=== PATIENT | female | born 1955 | race Caucasian/White ===

== ENCOUNTER 2016-11-09 13:36 | Inpatient (IN) ==
[2016-11-09] MEDS ORDERED: 0.9 % Sodium Chloride 1,000 ML IVC ONE (14:26)
[2016-11-09] MEDS ORDERED: GI Cocktail 40 ML EACH PO ONE (14:26)
--- NOTE | 2016-11-09 14:27 | Emergency Department Note ---
Disposition Clinical Impression: Abdominal pain, Nausea and vomiting, Intrahepatic bile duct dilation Disposition: Admitted As Inpatient Condition: Good Referrals: NO,PCP [Non-Partnered Physician] - Forms: Work/School Release, ED Satisfaction Letter General Adult HPI - General Chief complaint: ED Abdominal Pain Stated complaint: abd pain Time Seen by Provider: 11/09/16 13:48 Source: patient Nursing Notes Reviewed: Yes Vital Signs Reviewed: Yes - History of Present Illness Pain Scale: 10 - Related Data Previous Rx's Medication Instructions Recorded Azithromycin [Zithromax] 250 mg PO DAILY #6 tablet 03/18/15 Loratadine [Claritin] 10 mg PO DAILY #30 tablet 03/18/15 Promethazine [Phenergan] 25 mg PO Q6HR #12 tablet 03/18/15 Sucralfate [Carafate] 1 gm PO QIDAC #56 tablet 10/22/16 Allergies Allergy/AdvReac Type Severity Reaction Status Date / Time Banana AdvReac See Verified 11/09/16 13:43 Comments cefdinir [From Omnicef] AdvReac Rash Verified 11/09/16 13:43 Past Medical History - Past Medical History Medical history: Reports: COPD, fibromyalgia, GERD, hypertension Surgical history: Reports: appendectomy, cholecystectomy, hysterectomy Psychiatric history: Reports: anxiety, depression 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 - Social History Smoking Status: Current every day smoker Smokeless Tobacco Status: No Alcohol use: Reports: none Drug use: Reports: none Physical Exam - General General appearance: alert, in no apparent distress Course Vital Signs Temperature 97.6 F 11/09/16 13:40 Pulse Rate 106 11/09/16 13:40 Respiratory Rate 16 11/09/16 13:40 Blood Pressure 141/90 11/09/16 13:40 O2 Sat by Pulse Oximetry 98 11/09/16 13:40 Temperature 97.6 F 11/09/16 13:40 Pulse Rate 68 11/09/16 15:18 Respiratory Rate 20 11/09/16 15:18 Blood Pressure 124/79 11/09/16 15:18 O2 Sat by Pulse Oximetry 97 11/09/16 15:18 Oxygen Delivery Oxygen Delivery Room Air Medical Decision Making - MDM Narrative Medical decision making narrative: I examined this patient and my medical decision-making was reviewed with the ICD 9 CODER/PA/Advanced Practice Nurse/Resident Physician. I agree with the documented findings, disposition and treatment plan as described except to the extent set forth below. Patient seen and evaluated on arrival by myself and Dr. Ballesteros, I agree with his evaluation and management plan, supervise care the patient notes today. Patient had an EKG endoscopy done by Dr. LICEA. They thought she had Bocanegra's and pathology looks like there are some hyperplasia and inflammation. She still has abdominal pain despite having her medications. Return check some labs make sure showing a pancreatitis and reassess. We will speak with GI. 1400 hrs. patient in EKG performed shows a sinus rhythm ventricular rate of 84 QRS is 83 mL 400 no signs of ischemia compared this with an EKG that was done and October shows no changes except for rate. 1510 hrs.: Reviewed labs. Spoke with her GI physician yesterday go and bring her into the hospital. Speak with hospitalist now. Patient's in agreement with plan. Chronic abdominal pain uncertain etiology she will be getting MRCP in the hospital. Per GI. - Lab Data Result diagrams: 11/09/16 14:45 11/09/16 14:45 Lab Results 11/09/16 11/09/16 11/09/16 Range/Units 14:10 14:45 14:45 WBC 5.8 (4.3-11.1) K/mcL RBC 4.35 (3.82-4.97) M/mcL Hgb 13.2 (11.5-15.4) g/dL Hct 38.3 (35.3-44.9) % MCV 88.0 (83.0-100.0) fL MCH 30.3 (28.0-33.3) pg MCHC 34.5 (31.6-35.5) g/dL RDW 12.6 (11.5-14.5) % Plt Count 275 (140-400) K/mcL MPV 9.2 L (9.4-12.4) fL Immature Gran % 0.3 (0-4) % Seg Neutrophils % 60.0 % Lymphocytes % 29.3 % Monocytes % 6.8 % Eosinophils % 2.9 % Basophils % 0.7 % Neutrophils # 3.5 (1.6-8.9) K/mcL Lymphocytes # 1.7 (0.6-4.6) K/mcL Monocytes # 0.4 (0.0-1.3) K/mcL Eosinophils # 0.2 (0.0-0.6) K/mcL Basophils # 0.0 (0.0-0.2) K/mcL Sodium 140 (136-145) mEq/L Potassium 3.5 (3.5-4.5) mEq/L Chloride 107 (98-109) mEq/L Carbon Dioxide 27 (19-29) mEq/L BUN 9 (7-20) mg/dL Creatinine 0.69 (0.57-1.11) mg/dL Est GFR ( Amer) > 60 (> 60) Est GFR (Non-Af Amer) > 60 (> 60) BUN/Creatinine Ratio 13 (6-26) Glucose 87 (70-99) mg/dL Calculated Osmolality 288 (280-300) Calcium 8.8 (8.6-10.8) mg/dL Total Bilirubin 0.3 (0.2-1.2) mg/dL Direct Bilirubin 0.1 (0.0-0.5) mg/dL Indirect Bilirubin 0.2 (0.0-1.2) mg/dL AST 18 (5-34) Units/L ALT 21 (0-55) Units/L Alkaline Phosphatase 93 (38-126) Units/L Serum Total Protein 6.4 (6.0-8.3) g/dL Albumin 3.3 L (3.5-5.0) g/dL Globulin 3.1 (2.4-3.5) g/dL Albumin/Globulin Ratio 1.1 (1.1-2.2) Lipase 21 (8-78) Units/L Urine Color Yellow (Yellow) Urine Clarity Clear (Clear) Urine pH 6.5 (5.0-8.0) pH Units Ur Specific [place] 1.014 (1.010-1.025) Urine Protein Negative (Neg-Trace) mg/dL Urine Glucose (UA) Normal (Normal) mg/dL Urine Ketones Negative (Negative) mg/dL Urine Blood Negative (Negative) Urine Nitrite Negative (Negative) Urine Bilirubin Negative (Negative) Urine Urobilinogen Normal (Normal) mg/dL Ur Leukocyte Esterase Negative (Negative) Ur Culture Indicated? NO (NO)
[2016-11-09 14:29] LABS: Bilirubin,Urine Negative (Negative); Blood,Urine Negative (Negative); Clarity,Urine Clear (Clear); Color,Urine Yellow (Yellow); Glucose,Urine (UA) Normal (Normal); Ketones,Urine Negative (Negative); Leukocyte Esterase,Urine Negative (Negative); Nitrite,Urine Negative (Negative); PH,Urine 6.5 pH Units (5.0-8.0); Protein,Urine Negative (Neg-Trace); Specific Gravity,Urine 1.014 (1.010-1.025); Urobilinogen,Urine Normal (Normal)
--- NOTE | 2016-11-09 14:29 | Emergency Department Note ---
Disposition Clinical Impression: Abdominal pain, Nausea and vomiting, Intrahepatic bile duct dilation Disposition: Admitted As Inpatient Condition: Good Referrals: NO,PCP [Non-Partnered Physician] - Forms: ED Satisfaction Letter, Work/School Release Time of Disposition: 15:33 Abdominal Pain HPI - General Chief Complaint: ED Abdominal Pain Stated Complaint: abd pain Time Seen by Provider: 11/09/16 13:48 Source: patient Mode of arrival: ambulatory Limitations: no limitations Nursing Notes Reviewed: Yes Vital Signs Reviewed: Yes - History of Present Illness HPI Narrative: Patient presents to the ED with the chief complaint of abdominal pain. Patient states this. This is the exact same pain that she has been having for the last several weeks. She recently underwent endoscopy which showed some concern over Bocanegra's esophagus. However, the pathology specimen, came back and was normal. Patient thought that she may have had some infection in her stomach. However, I can find no documentation of H. pylori in her previous documentation. She sees Dr. Ro. States that she has continued to have abdominal pain despite being put on Protonix, sucralfate and Phenergan. She remains nauseated and intermittently vomits. Nausea and vomiting. His continued hand may be slightly gotten worse. States that she feels dehydrated. Reports a constant gnawing pain in her epigastrium. Otherwise there is no fever or chills. No chest pain or difficulty breathing. No diarrhea. Pain Scale: 10 - Related Data Previous Rx's Medication Instructions Recorded Azithromycin [Zithromax] 250 mg PO DAILY #6 tablet 03/18/15 Loratadine [Claritin] 10 mg PO DAILY #30 tablet 03/18/15 Promethazine [Phenergan] 25 mg PO Q6HR #12 tablet 03/18/15 Sucralfate [Carafate] 1 gm PO QIDAC #56 tablet 10/22/16 Allergies Allergy/AdvReac Type Severity Reaction Status Date / Time Banana AdvReac See Verified 11/09/16 13:43 Comments cefdinir [From Omnicef] AdvReac Rash Verified 11/09/16 13:43 All systems ED: reviewed and negative except as stated. Cardiovascular: Denies: chest pain Gastrointestinal: Reports: abdominal pain, nausea, vomiting. 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 Psychiatric history: Reports: anxiety, depression - Social History Smoking status: Current every day smoker Alcohol use: Reports: none Drug use: Reports: none Physical Exam - General Limitations: no limitations General appearance: alert, in no apparent distress - Head Head exam: atraumatic, normocephalic, normal inspection - Eye Eye exam: Present: normal appearance, PERRL, EOMI - ENT ENT exam: mucous membranes dry - Neck Neck exam: Present: normal inspection, full ROM, trachea midline - Chest Chest inspection: Present: normal inspection, symmetric chest wall rise - Respiratory Respiratory exam: Present: normal lung sounds bilaterally - Cardiovascular Cardiovascular exam: Present: regular rate, normal rhythm, normal heart sounds - Abdominal Exam Abdominal exam: Present: other (Histrionic abdominal exam. The patient has her arms crossed over her stomach and would not allow examination.) - Extremities Exam Extremities exam: Present: normal inspection, full ROM. Absent: tenderness, pedal edema - Neurological Exam Neurological exam: Present: alert, oriented X3 - Psychiatric Psychiatric exam: Present: anxious - Skin Skin exam: Present: warm, dry, intact, normal color Course Course Narrative: 61 -year-old female presenting with a 3 week history of nausea, vomiting, abdominal pain in her epigastrium. Initially suspected be an ulcer, but has not responded to traditional treatment. Gastroenterology did an EGD about 3 days ago with some initial concern over Bocanegra's esophagus but pathology returned normal. Patient still having the same symptoms with maybe a slight increase. Vision is very histrionic and is not easily cooperating with a full history or physical exam. We will check labs and rehydrate her as she is slightly tachycardic. - Consultations Consultation #1: Spoke with Dr. Ro. We reviewed the patient's pathology report labs and imaging. Her last CT scan was on October 22 and showed some intrahepatic biliary duct dilation. Status post cholecystectomy. He felt that due to the recurrent pain, nausea and treatments that she is states she has been compliant with are not helping that we should admit her to the hospitalist service for antinausea control and obtain an MRCP today or in the morning and he will evaluate her. Patient agreeable with plan. Time: 15:32 Vital Signs Temperature 97.6 F 11/09/16 13:40 Pulse Rate 106 11/09/16 13:40 Respiratory Rate 16 11/09/16 13:40 Blood Pressure 141/90 11/09/16 13:40 O2 Sat by Pulse Oximetry 98 11/09/16 13:40 Temperature 97.6 F 11/09/16 13:40 Pulse Rate 68 11/09/16 15:18 Respiratory Rate 20 11/09/16 15:18 Blood Pressure 124/79 11/09/16 15:18 O2 Sat by Pulse Oximetry 97 11/09/16 15:18 Oxygen Delivery Oxygen Delivery Room Air Abdominal Pain - Lab Data Result diagrams: 11/09/16 14:45 11/09/16 14:45 Lab Results 11/09/16 11/09/16 11/09/16 Range/Units 14:10 14:45 14:45 WBC 5.8 (4.3-11.1) K/mcL RBC 4.35 (3.82-4.97) M/mcL Hgb 13.2 (11.5-15.4) g/dL Hct 38.3 (35.3-44.9) % MCV 88.0 (83.0-100.0) fL MCH 30.3 (28.0-33.3) pg MCHC 34.5 (31.6-35.5) g/dL RDW 12.6 (11.5-14.5) % Plt Count 275 (140-400) K/mcL MPV 9.2 L (9.4-12.4) fL Immature Gran % 0.3 (0-4) % Seg Neutrophils % 60.0 % Lymphocytes % 29.3 % Monocytes % 6.8 % Eosinophils % 2.9 % Basophils % 0.7 % Neutrophils # 3.5 (1.6-8.9) K/mcL Lymphocytes # 1.7 (0.6-4.6) K/mcL Monocytes # 0.4 (0.0-1.3) K/mcL Eosinophils # 0.2 (0.0-0.6) K/mcL Basophils # 0.0 (0.0-0.2) K/mcL Sodium 140 (136-145) mEq/L Potassium 3.5 (3.5-4.5) mEq/L Chloride 107 (98-109) mEq/L Carbon Dioxide 27 (19-29) mEq/L BUN 9 (7-20) mg/dL Creatinine 0.69 (0.57-1.11) mg/dL Est GFR ( Amer) > 60 (> 60) Est GFR (Non-Af Amer) > 60 (> 60) BUN/Creatinine Ratio 13 (6-26) Glucose 87 (70-99) mg/dL Calculated Osmolality 288 (280-300) Calcium 8.8 (8.6-10.8) mg/dL Total Bilirubin 0.3 (0.2-1.2) mg/dL Direct Bilirubin 0.1 (0.0-0.5) mg/dL Indirect Bilirubin 0.2 (0.0-1.2) mg/dL AST 18 (5-34) Units/L ALT 21 (0-55) Units/L Alkaline Phosphatase 93 (38-126) Units/L Serum Total Protein 6.4 (6.0-8.3) g/dL Albumin 3.3 L (3.5-5.0) g/dL Globulin 3.1 (2.4-3.5) g/dL Albumin/Globulin Ratio 1.1 (1.1-2.2) Lipase 21 (8-78) Units/L Urine Color Yellow (Yellow) Urine Clarity Clear (Clear) Urine pH 6.5 (5.0-8.0) pH Units Ur Specific [place] 1.014 (1.010-1.025) Urine Protein Negative (Neg-Trace) mg/dL Urine Glucose (UA) Normal (Normal) mg/dL Urine Ketones Negative (Negative) mg/dL Urine Blood Negative (Negative) Urine Nitrite Negative (Negative) Urine Bilirubin Negative (Negative) Urine Urobilinogen Normal (Normal) mg/dL Ur Leukocyte Esterase Negative (Negative) Ur Culture Indicated? NO (NO) S.B.AShannan - S.Nancy.AShannan Situation: Demographics, MOA Background: Presenting Complaint, Relevant PMH, Meds, & Allergies Assessment: Vital Signs, Course and respsone to treatment, Exam Concerns, Patient/Family Expectation, Pertinant Lab Results, Outstanding Labs Recommendation: Recommendation based on pending studies, treatments, or consults S.[email or web address].RBeny Report Given to: Dr. Puentes admission Demond Repor Time: 15:39
[2016-11-09 15:08] LABS: Basophils % 0.7 %; Eosinophils # 0.2 K/mcL (0.0-0.6); Eosinophils % 2.9 %; Hematocrit 38.3 % (35.3-44.9); Hemoglobin 13.2 g/dL (11.5-15.4); Immature Granulocytes % 0.3 % (0-4); Lymphocytes # 1.7 K/mcL (0.6-4.6); Lymphocytes % 29.3 %; Mean Corpuscular HGB Conc 34.5 g/dL (31.6-35.5); Mean Corpuscular Hemoglobin 30.3 pg (28.0-33.3); Mean Platelet Volume 9.2 fL (9.4-12.4); Monocytes # 0.4 K/mcL (0.0-1.3); Monocytes % 6.8 %; Neutrophils # 3.5 K/mcL (1.6-8.9); Platelet Count 275 K/mcL (140-400); Red Blood Count 4.35 M/mcL (3.82-4.97); Red Cell Distribution Width 12.6 % (11.5-14.5)
[2016-11-09 15:21] LABS: Alanine Aminotransferase 21 Units/L (0-55); Albumin 3.3 g/dL (3.5-5.0); Albumin/Globulin Ratio 1.1 (1.1-2.2); Alkaline Phosphatase 93 Units/L (38-126); Aspartate Amino Transferase 18 Units/L (5-34); BUN/Creatinine Ratio 13 (6-26); Bilirubin,Direct 0.1 mg/dL (0.0-0.5); Bilirubin,Indirect 0.2 mg/dL (0.0-1.2); Bilirubin,Total 0.3 mg/dL (0.2-1.2); Blood Urea Nitrogen 9 mg/dL (7-20); Calcium 8.8 mg/dL (8.6-10.8); Carbon Dioxide 27 mEq/L (19-29); Chloride 107 mEq/L (98-109); Globulin 3.1 g/dL (2.4-3.5); Glucose 87 mg/dL (70-99); Lipase 21 Units/L (8-78); Osmolality,Calculated 288 (280-300); Potassium 3.5 mEq/L (3.5-4.5); Sodium 140 mEq/L (136-145); Total Protein 6.4 g/dL (6.0-8.3); eGFR For African Americans > 60 (> 60); eGFR For Non-African Americans > 60 (> 60)
--- NOTE | 2016-11-09 16:17 | Event Note ---
Date of Encounter: 11/09/16 Time of Encounter: 16:15 Patient seen and examined with nurse practitioner. 61-year-old female who has been complaining of 3 weeks of upper abdominal pain associated with nausea and none bloody nonbilious vomiting. Findings on workup were nonsignificant. Workup including a CT scan which showed mild dilation of the bile duct related likely to her prior cholecystectomy. She also had an EGD which showed normal stomach and duodenum. She still complaining of pain and vomiting. Possibilities include irritable bowel syndrome versus gastritis/ulcer disease. Her EKG is normal. Dr. Morgan wanted to admit the patient to get MRCP tomorrow given dilation of bile duct on CD and persistent pain. Patient liver functions unlike these are normal. Will give IV PPI. Continue pain medications which she takes for her back. She is full code.
[2016-11-09] MEDS ORDERED: Naloxone 0.4 MG/ML INJ IVP PRN (17:04)
[2016-11-09] MEDS ORDERED: Fluticasone Propionate Nasal 50 MCG/SPRAY BOTTLE NS PRN (17:09)
[2016-11-09] MEDS ORDERED: Pantoprazole 40 MG VIAL IVP SCH (17:15)
[2016-11-09] MEDS: OXYCODONE HCL 15 MG PO SCH (18:09)
[2016-11-09] MEDS: *HR* OxyCODONE/APAP 10/325 TABLET PO PRN (18:15)
[2016-11-09] MEDS: GI Cocktail 40 ML EACH PO SCH (20:27)
[2016-11-09] MEDS: Famotidine 20 MG TABLET PO SCH (20:28)
[2016-11-09] MEDS: Sucralfate 1 GM TABLET PO SCH (20:28)
[2016-11-09] MEDS: Gabapentin 400 MG CAPSULE PO SCH (20:28)
[2016-11-09] MEDS: rOPINIRole 1 MG TABLET PO SCH (20:28)
[2016-11-09] MEDS: Ondansetron 4 MG/2 ML VIAL IVP PRN (20:30)
--- NOTE | 2016-11-09 21:03 | Internal Med History&Physical ---
Date of Encounter: 11/10/16 Time of Encounter: 16:00 Assessment and Plan (1) Abdominal pain Current visit: Yes Status: Acute Assess: Ms. Portillo is a 61 year old female who presents from the ED with chief complaint of abdominal pain with nausea and vomiting. Patient states that she has had this pain for the past three weeks without resolve. Patient reports pain is in the epigastric area and extends from side to side. Patient states that she has not eaten well in the past three weeks and has lost 5 pounds during this time due to anorexia. An EGD test performed two days ago showed inflammation of the stomach lining/gastritis. Patient's PCP suspects an ulcer and placed patient on Protonix and Sucralfate. Plan: GI consult ordered Continue GI cocktail 10 ml PO BID Continue Mag Hydrox/Al Hydrox 15 ml PO Q6HR Continue Omeprazole Continue Bentyl 20 mg PO BID Zofran ordered PRN Clear liquid diet ordered - to be advanced as tolerated Oxycodone ordered for moderate pain (4-6) PO Q6HR PRN Morphine ordered for severe pain (7-10) 2 mg IVP once Monitor patient for pain/vital signs Qualifiers: Abdominal location: epigastric Qualified Code(s): R10.13 - Epigastric pain (2) Nausea and vomiting Current visit: Yes Status: Acute Assess: Ms. Portillo is a 61 year old female who presents from the ED with chief complaint of abdominal pain with nausea and vomiting. Patient states that she has had this pain for the past three weeks without resolve. Patient reports pain is in the epigastric area and extends from side to side. Patient states that she has not eaten well in the past three weeks and has lost 5 pounds during this time due to anorexia. An EGD test performed two days ago showed inflammation of the stomach lining/gastritis. Patient's PCP suspects an ulcer and placed patient on Protonix and Sucralfate. Plan: GI consult ordered Continue GI cocktail 10 ml PO BID Continue Mag Hydrox/Al Hydrox 15 ml PO Q6HR Continue Omeprazole Continue Bentyl 20 mg PO BID Zofran ordered PRN Clear liquid diet ordered - to be advanced as tolerated Oxycodone ordered for moderate pain (4-6) PO Q6HR PRN Morphine ordered for severe pain (7-10) 2 mg IVP once Monitor patient for pain/vital signs Qualifiers: Vomiting type: unspecified Vomiting Intractability: non-intractable Qualified Code(s): R11.2 - Nausea with vomiting, unspecified (3) GERD (gastroesophageal reflux disease) Current visit: Yes Status: Chronic Assess: Ms. Portillo is a 61 year old female who presents from the ED with chief complaint of abdominal pain with nausea and vomiting. Patient states that she has had this pain for the past three weeks without resolve. Patient reports pain is in the epigastric area and extends from side to side. Patient states that she has not eaten well in the past three weeks and has lost 5 pounds during this time due to anorexia. An EGD test performed two days ago showed inflammation of the stomach lining/gastritis. Patient's PCP suspects an ulcer and placed patient on Protonix and Sucralfate. Plan: GI consult ordered Continue GI cocktail 10 ml PO BID Continue Mag Hydrox/Al Hydrox 15 ml PO Q6HR Continue Omeprazole Continue Bentyl 20 mg PO BID Zofran ordered PRN Clear liquid diet ordered - to be advanced as tolerated Oxycodone ordered for moderate pain (4-6) PO Q6HR PRN Morphine ordered for severe pain (7-10) 2 mg IVP once Monitor patient for pain/vital signs Qualifiers: Esophagitis presence: esophagitis presence not specified Qualified Code(s) : K21.9 - Gastro-esophageal reflux disease without esophagitis (4) COPD (chronic obstructive pulmonary disease) Current visit: Yes Status: Chronic Assess: Patient presents with chronic history of COPD. Patient reports she smoked 1 PPD and quit one month ago, but she is now smoking 10 cigarettes per day. Plan: Continue Albuterol 2 puff IH Q4HR PRN Continue Symbicort 2 puff IH BIDR Continue Fluticasone 50 mcg NS BID PRN Continue Ipratropium/Albuterol 3 ml IH TIDR Continue Spiriva 18 mcg 0700 Continuous pulse oximetry monitoring RT consult Monitor patient's vital signs Qualifiers: COPD type: unspecified COPD Qualified Code(s): J44.9 - Chronic obstructive pulmonary disease, unspecified (5) Hypertension Current visit: Yes Status: Chronic Assess: Patient presents with history of chronic hypertension. Plan: Hold Lisinopril Continue Lisinopril if BP becomes elevated Continue Tricor Follow-up labs ordered Monitor patient's vital signs Qualifiers: Hypertension type: essential hypertension Qualified Code(s): I10 - Essential (primary) hypertension (6) DVT prophylaxis Current visit: Yes Status: Acute Assess: Patient to be placed on DVT prophylaxis due to bed rest and inpatient status. Plan: Bileteral SCDs for calves ordered Monitor patient and vital signs Internal Medicine - H&P: HPI Chief complaint: Abdominal pain Admitted From: Emergency Dept Plans for Post Hospital Care: Home History of present illness: Ms. Portillo is a 61 year old female who presents from the ED with chief complaint of abdominal pain with nausea and vomiting. Patient states that she has had this pain for the past three weeks without resolve. Patient reports pain is in the epigastric area and extends from side to side. Patient states that she has not eaten well in the past three weeks and has lost 5 pounds during this time due to anorexia. An EGD test performed two days ago showed inflammation of the stomach lining/gastritis. Patient's PCP suspects an ulcer and placed patient on Protonix and Sucralfate. Mrs. Portillo also reports chronic constipation related to opioids. She states that she has had two colonoscopies performed in the past and both times revealed polyps which were removed and biopsied. During the colonoscopies, it was revealed that she has diverticulosis. Patient also has a history of back pain related to a broken back several years ago, sciatica, and three herniated discs in the neck and three herniated discs in her lower back. Patient to be placed as inpatient status with GI consult ordered. Patient placed on clear liquid diet with advancement as tolerated. Patient to be monitored closely. Past Med Surg Social Fam HX - Past Medical History Source: patient Medical history: COPD, fibromyalgia, GERD, hypertension Psychiatric history: anxiety, depression - Past Surgical History Surgical History: appendectomy, cholecystectomy, hysterectomy - Social History Smoking Status: Current every day smoker Smokeless Tobacco Status: No Alcohol use: none Drug use: none Occupational status: unemployed Current living situation: Home, With Family Activity Level: Independent ambulation Recent Out of Country Travel Within the Last 8 Weeks: No Exposure or Possible Exposure to Illness During Travel: No - Family History Mother Living Status: Age at : 68 Cause of : Renal Failure Hx Family Cardiac Disorders: Yes (CT, HTN) Hx Family GI Disorders: Yes (CKD) Internal Medicine - H&P: Meds Sucralfate [Carafate] 1 gm PO QIDAC #56 tablet 10/22/16 [Rx] Albuterol Sulfate [Proair Hfa] 2 puff IH Q4H PRN 11/09/16 [History] Amitriptyline [Elavil] 25 mg PO HS 11/09/16 [History] Black Cohosh 540 mg PO HS 11/09/16 [History] BuPROPion XL (24 HR) [Wellbutrin XL] 150 mg PO DAILY 11/09/16 [History] Budesonide/Formoterol 160/4.5 [Symbicort 160/4.5] 2 puff IH BIDR 11/09/16 [ History] Cetirizine HCl [Zyrtec] 10 mg PO DAILY 11/09/16 [History] Dicyclomine [Bentyl] 20 mg PO QID 11/09/16 [History] FLUoxetine HCl [Prozac] 40 mg PO DAILY 11/09/16 [History] Fenofibrate Nanocrystallized [Tricor] 145 mg PO DAILY 11/09/16 [History] Fluticasone Propionate Nasal [Flonase] 1 spray NS BID PRN 11/09/16 [History] Furosemide [Lasix] 20 mg PO DAILY 11/09/16 [History] GI Cocktail [Gi Cocktail] 10 ml PO BID 11/09/16 [History] Gabapentin [Neurontin] 800 mg PO QID 11/09/16 [History] Ipratropium/Albuterol Neb [Duoneb] 3 ml IH TID 11/09/16 [History] Lactulose 15 ml PO DAILY PRN 11/09/16 [History] Lisinopril [Zestril] 20 mg PO DAILY 11/09/16 [History] Meclizine HCl [Verticalm] 25 mg PO Q4-6H PRN 11/09/16 [History] [place]-3/Dha/Epa/Fish Oil [Fish Oil 500 mg Softgel] 500 mg PO BID 11/09/16 [ History] Ondansetron HCl [Zofran] 4 mg PO TID PRN 11/09/16 [History] Oxycodone HCl [Oxycodone HCl ER] 15 mg PO Q12H 11/09/16 [History] Oxycodone HCl/Acetaminophen [Percocet 10-325 mg Tablet] 1 each PO Q6H PRN [History] Pantoprazole Sodium [Pantoprazole Sodium] 40 mg PO BID 11/09/16 [History] Promethazine [Phenergan] 25 mg PO TID PRN 11/09/16 [History] Ranitidine HCl [Zantac] 150 mg PO BID 11/09/16 [History] Ropinirole [Requip] 1 mg PO HS 11/09/16 [History] Tiotropium [Spiriva] 18 mcg IH 0700 11/09/16 [History] Allergies Banana Adverse Reaction (Mild, Verified 11/09/16 18:06) See Comments Patient states she had allergy testing done and was allergic. cefdinir [From Omnicef] Adverse Reaction (Mild, Verified 11/09/16 18:06) Rash egg Adverse Reaction (Mild, Verified 11/09/16 18:08) See Comments Patient states she had allergy testing done and was told that she was allergic. All Systems PM: A 10-system review of systems was performed and is negative for pertinent findings except as documented above in the HPI. - Constitutional Constitutional: fatigue, weight loss (Patient reports 5 pound weight loss in three weeks due to loss of appetite, N/V) - EENT Eyes: no change in vision, no discharge, no pain, no photophobia Ears: no ear discharge, no ear pain, no tinnitus Nose, mouth and throat: no dysphagia, no nasal discharge, no neck pain, no sore throat - Breasts Breasts: as per HPI - Cardiovascular Cardiovascular ROS IM: no chest pain, no diaphoresis, no dyspnea, no lightheadedness, no palpitations, no syncope - Respiratory Respiratory: no cough, no dyspnea, no wheezing, no excessive phlegm production - Gastrointestinal Gastrointestinal: abdominal pain, constipation, cramping, nausea, vomiting - Genitourinary Genitourinary: no change in urinary stream, no dysuria, no flank pain, no hematuria Menstruation: as per HPI - Musculoskeletal Musculoskeletal ROS IM: back pain, neck pain - Integumentary Integumentary IM: no rash, no unusual bruising - Neurological Neurological ROS: numbness, tingling, no confusion, no convulsions, no focal weakness, no tremor(s) - Psychiatric Psychiatric: as per HPI - Endocrine Endocrine IM: as per HPI - Hematologic/Lymphatic Hematologic/Lymphatic: no easy bruising - Allergic/Immunologic Allergic/Immunologic: as per HPI - Constitutional Vitals: Temp Pulse Resp BP Pulse Ox 97.6 F 65 15 111/72 98 11/09/16 18:34 11/09/16 18:34 11/09/16 18:34 11/09/16 18:34 11/09/16 18:34 General appearance: Present: cooperative, A&O X 3, pleasant, severe distress, loss of weight, answers questions appropriately - Head Head exam: Present: atraumatic, normocephalic - Eye Eye exam: Present: PERRL, conjuntiva pink, sclera anicteric Pupils: Present: PERRL - ENT ENT exam: Present: normal exam, normal external ear exam - Neck Neck exam general surgery: Present: supple, trachea midline. Absent: lymphadenopathy - Respiratory Respiratory exam: Present: CTAB. Absent: accessory muscle use, rales, rhonchi, wheezes - Cardiovascular Cardiovascular exam: Present: RRR, +S1, +S2. Absent: diastolic murmur, gallop, rubs, systolic murmur - GI/Abdominal GI/Abdominal exam: Present: guarding, hypoactive bowel sounds, tenderness, no peritoneal signs - Rectal Rectal exam: Present: deferred - Additional comments: exam deferred. - Extremities Exam Extremities exam: Present: warm, radial pulses palpable and symetrical. Absent : calf tenderness, cyanotic, pedal edema - Back Exam Back exam: Present: normal inspection - Neurological Exam Neurological exam: Present: CN II-XII intact, oriented X3, no focal deficits. Absent: pronater drift, facial droop, speech deficit - Psychiatric Psychiatric exam: Present: anxious - Skin Skin exam: Present: dry, intact Internal Med - H&P Results - Labs CBC & Chem 7: 11/10/16 05:23 11/10/16 05:23 - EKG Data -: EKG Interpreted by Myself EKG shows normal: sinus rhythm Rate: normal - EKG Data Prior EKG available for review: yes When compared to previous EKG: there is no significant change Interpretation IM: normal EKG EKG comments: 11/09/16 21:22 EKG dated 10/22/16 shows normal sinus rhythm. EKG dated 11/09/16 shows normal sinus rhythm. - Diagnostic Studies MRI - abdomen Additional comments: MRI of abdomen dated 11/09/16 shows no acute abnormality. There is mild prominence of the intra/extrahepatic biliary ducts without filling defect, likely a function of the patient's age and post-cholecystectomy status.
[2016-11-09] MEDS: Ipratropium/Albuterol Neb 3 ML IH SCH (21:41)
[2016-11-09] MEDS: Budesonide/Formoterol 160/4.5 MDI IH SCH (21:41)
[2016-11-09] MEDS ORDERED: *HR* Morphine 2 MG/ML SYRINGE IVP ONE (21:43)
[2016-11-09] MEDS: 0.9 % Sodium Chloride 1,000 ML IVC SCH (21:57)
[2016-11-09] MEDS: DHA PO SCH (21:59)
[2016-11-09] MEDS: FISH OIL PO SCH (21:59)
[2016-11-09] MEDS: OMEGA PO SCH (21:59)
[2016-11-09] MEDS: EPA PO SCH (21:59)
[2016-11-10] MEDS: Ipratropium/Albuterol Neb 3 ML IH SCH ×3 (04:15→16:49)
[2016-11-10] MEDS: Mag Hydrox/Al Hydrox/Simeth 30 ML UDC PO PRN (04:27)
[2016-11-10] MEDS: *HR* OxyCODONE/APAP 10/325 TABLET PO PRN ×3 (04:27→17:59)
[2016-11-10] MEDS: Ondansetron 4 MG/2 ML VIAL IVP PRN (04:31)
[2016-11-10 06:06] LABS: Basophils # 0.1 K/mcL (0.0-0.2); Eosinophils # 0.2 K/mcL (0.0-0.6); Eosinophils % 3.5 %; Hematocrit 34.5 % (35.3-44.9); Hemoglobin 11.7 g/dL (11.5-15.4); Immature Granulocytes % 0.4 % (0-4); Lymphocytes % 38.5 %; Mean Corpuscular HGB Conc 33.9 g/dL (31.6-35.5); Mean Corpuscular Hemoglobin 30.2 pg (28.0-33.3); Mean Corpuscular Volume 89.1 fL (83.0-100.0); Mean Platelet Volume 9.3 fL (9.4-12.4); Monocytes # 0.4 K/mcL (0.0-1.3); Monocytes % 7.6 %; Neutrophils # 2.5 K/mcL (1.6-8.9); Platelet Count 261 K/mcL (140-400); Red Blood Count 3.87 M/mcL (3.82-4.97); Red Cell Distribution Width 12.8 % (11.5-14.5)
[2016-11-10] MEDS: OXYCODONE HCL 15 MG PO SCH ×2 (06:10→16:03)
[2016-11-10] MEDS: Sucralfate 1 GM TABLET PO SCH ×4 (06:10→21:47)
[2016-11-10 06:31] LABS: Alanine Aminotransferase 16 Units/L (0-55); Albumin 2.8 g/dL (3.5-5.0); Alkaline Phosphatase 82 Units/L (38-126); Aspartate Amino Transferase 16 Units/L (5-34); BUN/Creatinine Ratio 10 (6-26); Bilirubin,Total 0.4 mg/dL (0.2-1.2); Blood Urea Nitrogen 7 mg/dL (7-20); Calcium 8.4 mg/dL (8.6-10.8); Carbon Dioxide 25 mEq/L (19-29); Chloride 111 mEq/L (98-109); Chol/HDL Ratio 6.5 (0-4.9); Cholesterol 195 mg/dL (< 200); Globulin 2.7 g/dL (2.4-3.5); Glucose 87 mg/dL (70-99); HDL Cholesterol 30 mg/dL (40-59); LDL Cholesterol,Calculated 103 mg/dL (0-99); Osmolality,Calculated 291 (280-300); Potassium 3.4 mEq/L (3.5-4.5); Sodium 142 mEq/L (136-145); Total Protein 5.5 g/dL (6.0-8.3); Triglycerides 308 mg/dL (< 150); eGFR For African Americans > 60 (> 60); eGFR For Non-African Americans > 60 (> 60)
[2016-11-10] MEDS: Fenofibrate 54 MG TABLET PO SCH (08:25)
[2016-11-10] MEDS: Gabapentin 400 MG CAPSULE PO SCH ×4 (08:25→21:48)
[2016-11-10] MEDS: BuPROPion XL (24 HR) 150 MG TABLET PO SCH (08:26)
[2016-11-10] MEDS: Lisinopril 20 MG TABLET PO SCH (08:27)
[2016-11-10] MEDS: FLUoxetine 20 MG CAPSULE PO SCH (08:27)
[2016-11-10] MEDS: Loratadine 10 MG TABLET PO SCH (08:27)
[2016-11-10] MEDS: GI Cocktail 40 ML EACH PO SCH ×2 (08:28→21:50)
[2016-11-10] MEDS: DHA PO SCH ×2 (08:28→21:52)
[2016-11-10] MEDS: OMEGA PO SCH ×2 (08:28→21:52)
[2016-11-10] MEDS: EPA PO SCH ×2 (08:28→21:52)
[2016-11-10] MEDS: FISH OIL PO SCH ×2 (08:28→21:52)
[2016-11-10] MEDS: Famotidine 20 MG TABLET PO SCH ×2 (08:28→21:47)
[2016-11-10] MEDS: 0.9 % Sodium Chloride 1,000 ML IVC SCH ×2 (08:38→19:47)
[2016-11-10] MEDS: Tiotropium 18 MCG inhalation IH SCH (08:50)
[2016-11-10] MEDS: Budesonide/Formoterol 160/4.5 MDI IH SCH ×2 (08:50→20:14)
[2016-11-10] MEDS: *HR* Morphine 2 MG/ML SYRINGE IVP PRN ×2 (09:24→21:56)
--- NOTE | 2016-11-10 14:01 | Internal Med Progress Note ---
Date of Encounter: 11/10/16 Time of Encounter: 13:59 - Assessment and plan (1) Abdominal pain Current Visit: Yes Status: Acute Assessment and plan: Patient is a right upper quadrant pain. Bilirubin and liver function test is within normal limits. MRI abdomen: Mild prominence of extra/intrahepatic Clay duct without any filling defect. Status post cholecystectomy. Presently on opioid analgesics intravenously. Pain is well controlled with above medication. Noted that gastroenterology has been consulted. Qualifiers: Abdominal location: epigastric Qualified Code(s): R10.13 - Epigastric pain (2) Hypertension Current Visit: Yes Status: Chronic Assessment and plan: Presently well-controlled blood pressure. Qualifiers: Hypertension type: essential hypertension Qualified Code(s): I10 - Essential (primary) hypertension (3) COPD (chronic obstructive pulmonary disease) Current Visit: Yes Status: Chronic Assessment and plan: Well-controlled COPD Qualifiers: COPD type: unspecified COPD Qualified Code(s): J44.9 - Chronic obstructive pulmonary disease, unspecified (4) DVT prophylaxis Current Visit: Yes Status: Acute Assessment and plan: SCD Patient has [id number] risk of worsening in spite of being on appropriate medication due to underlying gastrointestinal condition - Subjective Interval history: Seen and examined. Chart reviewed. Patient is complaining of right upper quadrant pain. Presently on opioid analgesics. - Constitutional Vitals: Temp Pulse Resp BP Pulse Ox 97.8 F 76 18 132/68 98 11/10/16 11:11 11/10/16 11:11 11/10/16 11:11 11/10/16 11:11 11/10/16 11:11 General appearance: Present: cooperative, A&O X 3, pleasant, severe distress, loss of weight, answers questions appropriately - Head Head exam: Present: atraumatic, normocephalic - Eye Eye exam: Present: PERRL, conjuntiva pink, sclera anicteric Pupils: Present: PERRL - Neck Neck exam general surgery: Present: supple, trachea midline. Absent: lymphadenopathy - Respiratory Respiratory exam: Present: CTAB. Absent: accessory muscle use, rales, rhonchi, wheezes - Cardiovascular Cardiovascular exam: Present: RRR, +S1, +S2. Absent: diastolic murmur, gallop, rubs, systolic murmur - GI/Abdominal GI/Abdominal exam: Present: normal bowel sounds, soft, no peritoneal signs. Absent: distended, tenderness - Extremities Exam Extremities exam: Present: warm, radial pulses palpable and symetrical. Absent : calf tenderness, cyanotic, pedal edema - Neurological Exam Neurological exam: Present: CN II-XII intact, oriented X3, no focal deficits. Absent: pronater drift, facial droop, speech deficit - Skin Skin exam: Present: dry, intact Internal Medicine: Result - Labs CBC & Chem 7: 11/10/16 05:23 11/10/16 05:23 Labs: Short CBC 11/10/16 Range/Units 05:23 WBC 5.1 (4.3-11.1) K/mcL Hgb 11.7 D (11.5-15.4) g/dL Hct 34.5 L (35.3-44.9) % Plt Count 261 (140-400) K/mcL Neutrophils # 2.5 (1.6-8.9) K/mcL BMP 11/10/16 05:23 Sodium 142 Potassium 3.4 L Chloride 111 H Carbon Dioxide 25 BUN 7 Creatinine 0.68 Glucose 87 Calcium 8.4 L Cardiac Enzymes 11/10/16 Range/Units 09:16 Troponin I 0.00 (0-0.03) ng/mL Liver Function 11/10/16 Range/Units 05:23 Total Bilirubin 0.4 (0.2-1.2) mg/dL AST 16 (5-34) Units/L ALT 16 (0-55) Units/L Alkaline Phosphatase 82 (38-126) Units/L Albumin 2.8 L (3.5-5.0) g/dL Consult Discharge Plan - Plan Referrals: Jarett Foreman MD [Primary Care Provider] -
[2016-11-10] MEDS ORDERED: SODIUM CHLORIDE/NAHCO3/KCL/PEG 4,000 ML SOLN.RECON PO ONE (15:00)
[2016-11-10] MEDS: Menthol 9.1 MG LOZENGE PO PRN ×4 (16:20→23:59)
[2016-11-10] MEDS: rOPINIRole 1 MG TABLET PO SCH (21:47)
[2016-11-11] MEDS: Ipratropium/Albuterol Neb 3 ML IH SCH ×3 (04:03→16:22)
[2016-11-11] MEDS: OXYCODONE HCL 15 MG PO SCH ×2 (04:27→16:41)
[2016-11-11 04:57] LABS: Basophils # 0.1 K/mcL (0.0-0.2); Eosinophils # 0.1 K/mcL (0.0-0.6); Eosinophils % 2.4 %; Hematocrit 34.4 % (35.3-44.9); Hemoglobin 11.5 g/dL (11.5-15.4); Immature Granulocytes % 0.2 % (0-4); Lymphocytes # 1.8 K/mcL (0.6-4.6); Lymphocytes % 34.6 %; Mean Corpuscular HGB Conc 33.4 g/dL (31.6-35.5); Mean Corpuscular Hemoglobin 30.3 pg (28.0-33.3); Mean Corpuscular Volume 90.5 fL (83.0-100.0); Mean Platelet Volume 9.4 fL (9.4-12.4); Monocytes # 0.4 K/mcL (0.0-1.3); Monocytes % 7.9 %; Neutrophils # 2.7 K/mcL (1.6-8.9); Platelet Count 271 K/mcL (140-400); Red Cell Distribution Width 12.8 % (11.5-14.5); Segmented Neutrophils % 53.9 %
[2016-11-11 05:17] LABS: Alanine Aminotransferase 14 Units/L (0-55); Albumin 2.8 g/dL (3.5-5.0); Alkaline Phosphatase 78 Units/L (38-126); Aspartate Amino Transferase 16 Units/L (5-34); BUN/Creatinine Ratio 8 (6-26); Bilirubin,Total 0.4 mg/dL (0.2-1.2); Calcium 8.3 mg/dL (8.6-10.8); Carbon Dioxide 26 mEq/L (19-29); Chloride 110 mEq/L (98-109); Globulin 2.7 g/dL (2.4-3.5); Glucose 89 mg/dL (70-99); Osmolality,Calculated 289 (280-300); Potassium 3.3 mEq/L (3.5-4.5); Sodium 141 mEq/L (136-145); Total Protein 5.5 g/dL (6.0-8.3); eGFR For African Americans > 60 (> 60); eGFR For Non-African Americans > 60 (> 60)
[2016-11-11 05:24] LABS: Blood Urea Nitrogen 5 mg/dL (7-20)
[2016-11-11] MEDS: Menthol 9.1 MG LOZENGE PO PRN ×3 (06:07→23:29)
[2016-11-11] MEDS: 0.9 % Sodium Chloride 1,000 ML IVC SCH ×2 (06:08→16:45)
[2016-11-11] MEDS: Sucralfate 1 GM TABLET PO SCH ×4 (06:08→20:55)
[2016-11-11] MEDS: *HR* OxyCODONE/APAP 10/325 TABLET PO PRN ×3 (06:14→19:57)
--- NOTE | 2016-11-11 07:59 | Internal Med Progress Note ---
Date of Encounter: 11/11/16 Time of Encounter: 07:57 - Assessment and plan (1) Abdominal pain Current Visit: Yes Status: Acute Assessment and plan: Patient is a right upper quadrant pain. Bilirubin and liver function test is within normal limits. MRI abdomen: Mild prominence of extra/intrahepatic Clay duct without any filling defect. Status post cholecystectomy. Presently on opioid analgesics intravenously. Pain is well controlled with above medication. Noted that gastroenterology has been consulted. 11/11/2016 still has right upper quadrant pain. Pain is better as patient is getting IV morphine we will continue same management. Awaiting for gastroenterology to see patient. Qualifiers: Abdominal location: epigastric Qualified Code(s): R10.13 - Epigastric pain (2) Hypertension Current Visit: Yes Status: Chronic Assessment and plan: Presently well-controlled blood pressure. Qualifiers: Hypertension type: essential hypertension Qualified Code(s): I10 - Essential (primary) hypertension (3) COPD (chronic obstructive pulmonary disease) Current Visit: Yes Status: Chronic Assessment and plan: Well-controlled COPD Qualifiers: COPD type: unspecified COPD Qualified Code(s): J44.9 - Chronic obstructive pulmonary disease, unspecified (4) DVT prophylaxis Current Visit: Yes Status: Acute Assessment and plan: SCD Patient has [id number] risk of worsening in spite of being on appropriate medication due to underlying gastrointestinal condition - Subjective Interval history: Seen and examined. Chart reviewed. Patient is complaining of right upper quadrant pain. Presently on opioid analgesics. 11/11/2016 seen and examined. Chart reviewed. patient is still complaining of right upper quadrant pain. Patient claims that pain is better as compared to yesterday. patient is on intravenous morphine - Constitutional Vitals: Temp Pulse Resp BP Pulse Ox 97.9 F 71 16 147/86 97 11/11/16 07:21 11/11/16 07:21 11/11/16 07:21 11/11/16 07:21 11/11/16 07:21 General appearance: Present: cooperative, A&O X 3, pleasant, severe distress, loss of weight, answers questions appropriately - Head Head exam: Present: atraumatic, normocephalic - Eye Eye exam: Present: PERRL, conjuntiva pink, sclera anicteric Pupils: Present: PERRL - Neck Neck exam general surgery: Present: supple, trachea midline. Absent: lymphadenopathy - Respiratory Respiratory exam: Present: CTAB. Absent: accessory muscle use, rales, rhonchi, wheezes - Cardiovascular Cardiovascular exam: Present: RRR, +S1, +S2. Absent: diastolic murmur, gallop, rubs, systolic murmur - GI/Abdominal GI/Abdominal exam: Present: normal bowel sounds, soft, no peritoneal signs. Absent: distended, tenderness - Extremities Exam Extremities exam: Present: warm, radial pulses palpable and symetrical. Absent : calf tenderness, cyanotic, pedal edema - Neurological Exam Neurological exam: Present: CN II-XII intact, oriented X3, no focal deficits. Absent: pronater drift, facial droop, speech deficit - Skin Skin exam: Present: dry, intact Internal Medicine: Result - Labs CBC & Chem 7: 11/11/16 04:04 11/11/16 04:04 Labs: Short CBC 11/11/16 Range/Units 04:04 WBC 5.1 (4.3-11.1) K/mcL Hgb 11.5 (11.5-15.4) g/dL Hct 34.4 L (35.3-44.9) % Plt Count 271 (140-400) K/mcL Neutrophils # 2.7 (1.6-8.9) K/mcL BMP 11/11/16 04:04 Sodium 141 Potassium 3.3 L Chloride 110 H Carbon Dioxide 26 BUN 5 L Creatinine 0.60 Glucose 89 Calcium 8.3 L Cardiac Enzymes 11/10/16 11/10/16 11/10/16 Range/Units 09:16 14:44 21:31 Troponin I 0.00 0.00 0.00 (0-0.03) ng/mL Liver Function 11/11/16 Range/Units 04:04 Total Bilirubin 0.4 (0.2-1.2) mg/dL AST 16 (5-34) Units/L ALT 14 (0-55) Units/L Alkaline Phosphatase 78 (38-126) Units/L Albumin 2.8 L (3.5-5.0) g/dL Consult Discharge Plan - Plan Referrals: Jarett Foreman MD [Primary Care Provider] -
[2016-11-11] MEDS: FLUoxetine 20 MG CAPSULE PO SCH (09:34)
[2016-11-11] MEDS: Fenofibrate 54 MG TABLET PO SCH (09:34)
[2016-11-11] MEDS: Gabapentin 400 MG CAPSULE PO SCH ×4 (09:34→19:58)
[2016-11-11] MEDS: Loratadine 10 MG TABLET PO SCH (09:35)
[2016-11-11] MEDS: Famotidine 20 MG TABLET PO SCH ×2 (09:35→19:57)
[2016-11-11] MEDS: BuPROPion XL (24 HR) 150 MG TABLET PO SCH ×2 (09:35→09:46)
[2016-11-11] MEDS: Lisinopril 20 MG TABLET PO SCH (09:35)
[2016-11-11] MEDS: GI Cocktail 40 ML EACH PO SCH ×2 (09:35→20:02)
[2016-11-11] MEDS: *HR* Morphine 2 MG/ML SYRINGE IVP PRN ×2 (09:38→17:34)
[2016-11-11] MEDS: FISH OIL PO SCH ×2 (09:45→20:00)
[2016-11-11] MEDS: DHA PO SCH ×2 (09:45→20:00)
[2016-11-11] MEDS: OMEGA PO SCH ×2 (09:45→20:00)
[2016-11-11] MEDS: EPA PO SCH ×2 (09:45→20:00)
[2016-11-11] MEDS: Budesonide/Formoterol 160/4.5 MDI IH SCH ×2 (11:08→21:26)
[2016-11-11] MEDS: Tiotropium 18 MCG inhalation IH SCH (11:10)
[2016-11-11] MEDS: rOPINIRole 1 MG TABLET PO SCH (19:58)
[2016-11-11] MEDS: Ondansetron 4 MG/2 ML VIAL IVP PRN (23:26)
[2016-11-12] MEDS: *HR* Morphine 2 MG/ML SYRINGE IVP PRN ×3 (02:14→14:51)
[2016-11-12] MEDS: 0.9 % Sodium Chloride 1,000 ML IVC SCH ×3 (02:37→23:05)
[2016-11-12] MEDS: Ipratropium/Albuterol Neb 3 ML IH SCH ×3 (03:35→16:40)
[2016-11-12 03:48] LABS: Basophils % 0.5 %; Eosinophils # 0.1 K/mcL (0.0-0.6); Hematocrit 33.9 % (35.3-44.9); Hemoglobin 11.3 g/dL (11.5-15.4); Immature Granulocytes % 0.2 % (0-4); Immature Platelets 2.6 % (1.1-6.1); Lymphocytes # 1.8 K/mcL (0.6-4.6); Lymphocytes % 33.4 %; Mean Corpuscular HGB Conc 33.3 g/dL (31.6-35.5); Mean Corpuscular Hemoglobin 29.9 pg (28.0-33.3); Mean Corpuscular Volume 89.7 fL (83.0-100.0); Mean Platelet Volume 9.4 fL (9.4-12.4); Monocytes # 0.5 K/mcL (0.0-1.3); Monocytes % 8.2 %; Neutrophils # 3.1 K/mcL (1.6-8.9); Platelet Count 272 K/mcL (140-400); Red Blood Count 3.78 M/mcL (3.82-4.97); Red Cell Distribution Width 12.6 % (11.5-14.5); Segmented Neutrophils % 55.7 %
[2016-11-12] MEDS: *HR* OxyCODONE/APAP 10/325 TABLET PO PRN ×3 (03:58→20:11)
[2016-11-12 04:01] LABS: Alanine Aminotransferase 25 Units/L (0-55); Albumin 3.1 g/dL (3.5-5.0); Albumin/Globulin Ratio 1.1 (1.1-2.2); Alkaline Phosphatase 89 Units/L (38-126); Aspartate Amino Transferase 26 Units/L (5-34); BUN/Creatinine Ratio 10 (6-26); Bilirubin,Total 0.4 mg/dL (0.2-1.2); Blood Urea Nitrogen 7 mg/dL (7-20); Calcium 8.8 mg/dL (8.6-10.8); Carbon Dioxide 28 mEq/L (19-29); Chloride 108 mEq/L (98-109); Globulin 2.9 g/dL (2.4-3.5); Glucose 94 mg/dL (70-99); Osmolality,Calculated 290 (280-300); Potassium 3.6 mEq/L (3.5-4.5); Sodium 141 mEq/L (136-145); eGFR For African Americans > 60 (> 60); eGFR For Non-African Americans > 60 (> 60)
[2016-11-12] MEDS: OXYCODONE HCL 15 MG PO SCH ×2 (04:40→16:55)
[2016-11-12] MEDS: Sucralfate 1 GM TABLET PO SCH ×4 (06:24→20:12)
[2016-11-12] MEDS: Menthol 9.1 MG LOZENGE PO PRN (06:25)
[2016-11-12] MEDS: Budesonide/Formoterol 160/4.5 MDI IH SCH ×2 (07:54→19:24)
[2016-11-12] MEDS: Tiotropium 18 MCG inhalation IH SCH (07:54)
--- NOTE | 2016-11-12 08:34 | Gastroenterology Consult Note ---
<Clotilde Hsieh - Last Filed: 11/12/16 12:06> Date of Encounter: 11/12/16 Time of Encounter: 11:25 - Assessment and plan (1) Abdominal pain Current Visit: Yes Status: Acute Assessment and plan: Unclear etiology. Patient is being treated for findings of gastritis/ esophagitis with PPI and carafate. Currently stable, if symptoms recur consider gastroparesis. Differential includes: SOD. Qualifiers: Abdominal location: epigastric Qualified Code(s): R10.13 - Epigastric pain (2) Nausea and vomiting Current Visit: Yes Status: Acute Assessment and plan: Anti-emetics. Qualifiers: Vomiting type: unspecified Vomiting Intractability: non-intractable Qualified Code(s): R11.2 - Nausea with vomiting, unspecified (3) Intrahepatic bile duct dilation Current Visit: Yes Status: Chronic Assessment and plan: Stable, likely secondary to post-cholecystectomy state. No evidence of obstruction or irregularity on imaging. - Time Spent With Patient Total time spent is greater than 50% in coordination of care (as documented) at patient's floor/unit and/or counseling patient: less than 15 minutes GI History of Present Illness - Data of Consult Patient: known to practice within the last 3 years Consult date: 11/12/16 Requesting Physician: Dominick Mosley MD - Consult Narrative Reason for consult: RUQ abd pain History of present illness: Ms. Portillo is a 61 year old female with a PMH of COPD, fibromyalgia, GERD and HTN, presented to the ED with chief complaint of abdominal pain with nausea and vomiting. Patient had just been evaluated last week for similar complaint at which time a CT scan was completed showing some thickening in the gastric antrum and pylorus. Patient states that she has had this pain for the past three weeks without resolve. Patient reports pain is in the epigastric area and extends from side to side. Patient states that she has not eaten well in the past three weeks and has lost 5 pounds during this time due to anorexia. An EGD test performed 11/07/16 showed inflammation of the stomach lining/gastritis. Patient's PCP suspected an ulcer and placed patient on Protonix and Sucralfate. Mrs. Portillo also reports chronic constipation related to opioids. She states that she has had two colonoscopies performed in the past (the last being approximately 2008?) and both times revealed polyps which were removed and biopsied. During the colonoscopies, it was revealed that she has diverticulosis. Patient also has a history of back pain related to a broken back several years ago, sciatica, and three herniated discs in the neck and three herniated discs in her lower back. MRCP was completed as there was evidence of mild intra/extrahepatic ductal dilation on CT imaging with a normal CBD and no filing defects confirmed. LFTs are wnl. Dilation was characterized as 'stable' between the two images. She is currently on prilosec 20 mg bid, pepcid daily, carafate qid and bentyl. Patient admits lots of stress lately due to being taken off of her anxiety medications (benzodiazepines) and living with her alcoholic of 32 years. She denies feeling unsafe in her home. She wants to get into a good psychiatrist for continued management of her symptoms, but believes this has contributed greatly to her presenting symptoms at time of admission. Patient is markedly improved today. Colonoscopy: 2008? colon polyps per patient EGD: 11/07/16 - Gul - gastritis, esophagitis, benign gastric polyps Past Med Surg Social Fam HX - Past Medical History Medical history: COPD, fibromyalgia, GERD, hypertension Psychiatric history: anxiety, depression - Past Surgical History Surgical History: appendectomy, cholecystectomy, hysterectomy - Social History Smoking Status: Current every day smoker Smokeless Tobacco Status: No Alcohol use: none Drug use: none - Family History Mother Living Status: Age at : 68 Cause of : Renal Failure Hx Family Cardiac Disorders: Yes ([place], HTN) Hx Family GI Disorders: Yes (CKD) - Gastrointestinal NSAID use: None Anticoagulation Use: None Number of BM Per Day: q2-4 days or more Gastrointestinal: Present: abdominal pain, constipation, dyspepsia, nausea, vomiting - Constitutional Constitutional: anorexia, weight loss - EENT Eyes: as per HPI Ears: Present: as per HPI Nose, mouth and throat: Present: as per HPI - Cardiovascular Cardiovascular ROS: Present: as per HPI - Respiratory Respiratory IM: Present: as per HPI - Neurological ROS Neurological GI: Present: as per HPI - Hematologic/Lymphatic Hematologic/Lymphatic pediatric: Present: as per HPI - Musculoskeletal Musculoskeletal ROS GI: Present: back pain - Integumentary Integumentary GI: Present: as per HPI - Psychiatric ROS Psychiatric GI: Present: anxiety - Endocrine Endocrine IM: Present: as per HPI - Constitutional Vitals: Temp Pulse Resp BP Pulse Ox 98.0 F 57 16 165/90 96 11/12/16 06:53 11/12/16 06:53 11/12/16 06:53 11/12/16 06:53 11/12/16 06:53 General appearance: Present: cooperative, A&O X 3, no acute distress, answers questions appropriately - Head Head exam: Present: atraumatic, normocephalic - Eye Eye exam: Present: normal appearance, sclera anicteric - ENT ENT exam: Present: mucous membranes moist - Neck Neck exam general surgery: Present: normal inspection, trachea midline - Respiratory Respiratory exam: Present: CTAB - Cardiovascular Cardiovascular exam: Present: RRR, +S1, +S2 - GI/Abdominal GI/Abdominal exam: Present: normal bowel sounds, tenderness, no peritoneal signs - Rectal Rectal exam: Present: deferred - Extremities Exam Extremities exam: Present: warm - Neurological Exam Neurological exam: Present: no focal deficits - Psychiatric Psychiatric exam: Present: anxious - Skin Skin exam: Present: dry, intact, normal color, warm Results - Labs CBC & Chem 7: 11/12/16 03:08 11/12/16 03:08 Labs: Last Result Calcium 8.8 mg/dL (8.6-10.8) 11/12/16 03:08 Troponin I 0.00 ng/mL (0-0.03) 11/10/16 21:31 Triglycerides 308 mg/dL (< 150) H 11/10/16 05:23 Entire Visit Hgb 11.3 g/dL (11.5-15.4) L 11/12/16 03:08 Hct 33.9 % (35.3-44.9) L 11/12/16 03:08 Total Bilirubin 0.4 mg/dL (0.2-1.2) 11/12/16 03:08 AST 26 Units/L (5-34) 11/12/16 03:08 ALT 25 Units/L (0-55) 11/12/16 03:08 Lipase 21 Units/L (8-78) 11/09/16 14:45 Consult Discharge Plan - Plan Referrals: Jarett Foreman MD [Primary Care Provider] - <Aminta Ro - Last Filed: 11/12/16 18:28> Date of Encounter: 11/12/16 Time of Encounter: 18:00 - Time Spent With Patient Total time spent is greater than 50% in coordination of care (as documented) at patient's floor/unit and/or counseling patient: GI History of Present Illness - Data of Consult Requesting Physician: Dominick Mosley MD - Consult Narrative History of present illness: Ms. Portillo is a 61 year old female - Constitutional Vitals: Temp Pulse Resp BP Pulse Ox 97.9 F 61 16 136/84 92 11/12/16 15:16 11/12/16 15:16 11/12/16 15:16 11/12/16 15:16 11/12/16 15:16 Results - Labs CBC & Chem 7: 11/12/16 03:08 11/12/16 03:08 Labs: Last Result Calcium 8.8 mg/dL (8.6-10.8) 11/12/16 03:08 Troponin I 0.00 ng/mL (0-0.03) 11/10/16 21:31 Triglycerides 308 mg/dL (< 150) H 11/10/16 05:23 Entire Visit Hgb 11.3 g/dL (11.5-15.4) L 11/12/16 03:08 Hct 33.9 % (35.3-44.9) L 11/12/16 03:08 Total Bilirubin 0.4 mg/dL (0.2-1.2) 11/12/16 03:08 AST 26 Units/L (5-34) 11/12/16 03:08 ALT 25 Units/L (0-55) 11/12/16 03:08 Lipase 21 Units/L (8-78) 11/09/16 14:45 - Attending Attestation I examined this patient and my medical decision-making was reviewed with the MOUNTING INSPECTOR/PA/Advanced Practice Nurse/Resident Physician. I agree with the documented findings, disposition and treatment plan as described except to the extent set forth below. Patient with upper abdominal pain across the whole abdomen for the last 3-4 weeks. MRCP reviewed. Recent EGD done which was unremarkable. Now has anemia and has chronic constipation. Symptoms are not typical of SOD she could have chronic pancreatitis although no previous history of pancreatitis Rec: We will prep her for colonoscopy on Saturday as because of her chronic constipation would be difficult to prep her in 1 day
[2016-11-12] MEDS: Ondansetron 4 MG/2 ML VIAL IVP PRN ×2 (09:28→14:50)
[2016-11-12] MEDS: FLUoxetine 20 MG CAPSULE PO SCH (09:29)
[2016-11-12] MEDS: Gabapentin 400 MG CAPSULE PO SCH ×4 (09:29→20:11)
[2016-11-12] MEDS: Famotidine 20 MG TABLET PO SCH ×2 (09:29→20:11)
[2016-11-12] MEDS: BuPROPion XL (24 HR) 150 MG TABLET PO SCH (09:29)
[2016-11-12] MEDS: Lisinopril 20 MG TABLET PO SCH (09:29)
[2016-11-12] MEDS: Fenofibrate 54 MG TABLET PO SCH (09:29)
[2016-11-12] MEDS: Loratadine 10 MG TABLET PO SCH (09:29)
[2016-11-12] MEDS: FISH OIL PO SCH ×2 (09:30→22:41)
[2016-11-12] MEDS: DHA PO SCH ×2 (09:30→22:41)
[2016-11-12] MEDS: OMEGA PO SCH ×2 (09:30→22:41)
[2016-11-12] MEDS: EPA PO SCH ×2 (09:30→22:41)
[2016-11-12] MEDS: GI Cocktail 40 ML EACH PO SCH ×2 (10:30→20:12)
[2016-11-12] MEDS: Mag Hydrox/Al Hydrox/Simeth 30 ML UDC PO PRN (13:50)
--- NOTE | 2016-11-12 16:17 | Electrocardiograph Report ---
[place] [id number] Test Date: 2016-11-09 Pat Name: Cuca Portillo Department: 105 Room: 3B Gender: F Court Deputy: : 1955 Requested By: Clifton Owens Order Number: [id number] Reading MD: Kehinde Bhandari MD Measurements Intervals [place] Rate: 84 P: 44 LA: 158 QRS: 66 QRSD: 83 T: 58 QT: 359 QTc: 400 Interpretive Statements SINUS RHYTHM Electronically Signed On 11-12-2016 16:16:08 EDT by Kehinde Bhandari MD
[2016-11-12] MEDS: ALPRAZolam 0.5 MG TABLET PO PRN (16:55)
--- NOTE | 2016-11-12 18:08 | Internal Med Progress Note ---
Date of Encounter: 11/12/16 Time of Encounter: 18:05 - Assessment and plan (1) Abdominal pain Current Visit: Yes Status: Acute Assessment and plan: Patient is a right upper quadrant pain. Bilirubin and liver function test is within normal limits. MRI abdomen: Mild prominence of extra/intrahepatic Clay duct without any filling defect. Status post cholecystectomy. Presently on opioid analgesics intravenously. Pain is well controlled with above medication. Noted that gastroenterology has been consulted. 11/11/2016 still has right upper quadrant pain. Pain is better as patient is getting IV morphine we will continue same management. Awaiting for gastroenterology to see patient. 11/12/2016 Patient still has persistent right upper quadrant pain. Evaluated by a gastroenterology. Noted that there is a drop of 3 g of hemoglobin. Spoke with Dr. Ro. Possible colonoscopy. Qualifiers: Abdominal location: epigastric Qualified Code(s): R10.13 - Epigastric pain (2) Hypertension Current Visit: Yes Status: Chronic Assessment and plan: Presently well-controlled blood pressure. Qualifiers: Hypertension type: essential hypertension Qualified Code(s): I10 - Essential (primary) hypertension (3) COPD (chronic obstructive pulmonary disease) Current Visit: Yes Status: Chronic Assessment and plan: Well-controlled COPD Qualifiers: COPD type: unspecified COPD Qualified Code(s): J44.9 - Chronic obstructive pulmonary disease, unspecified (4) DVT prophylaxis Current Visit: Yes Status: Acute Assessment and plan: SCD Patient has [id number] risk of worsening in spite of being on appropriate medication due to underlying gastrointestinal condition - Subjective Interval history: Seen and examined. Chart reviewed. Patient is complaining of right upper quadrant pain. Presently on opioid analgesics. 11/11/2016 seen and examined. Chart reviewed. patient is still complaining of right upper quadrant pain. Patient claims that pain is better as compared to yesterday. patient is on intravenous morphine 11/12/2016 Seen and examined. Chart reviewed. Patient is still complaining of right upper quadrant pain. GI on the board. - Constitutional Vitals: Temp Pulse Resp BP Pulse Ox 97.9 F 61 16 136/84 92 11/12/16 15:16 11/12/16 15:16 11/12/16 15:16 11/12/16 15:16 11/12/16 15:16 General appearance: Present: cooperative, A&O X 3, pleasant, severe distress, loss of weight, answers questions appropriately - Head Head exam: Present: atraumatic, normocephalic - Eye Eye exam: Present: PERRL, conjuntiva pink, sclera anicteric Pupils: Present: PERRL - Neck Neck exam general surgery: Present: supple, trachea midline. Absent: lymphadenopathy - Respiratory Respiratory exam: Present: CTAB. Absent: accessory muscle use, rales, rhonchi, wheezes - Cardiovascular Cardiovascular exam: Present: RRR, +S1, +S2. Absent: diastolic murmur, gallop, rubs, systolic murmur - GI/Abdominal GI/Abdominal exam: Present: normal bowel sounds, soft, no peritoneal signs. Absent: distended, tenderness - Extremities Exam Extremities exam: Present: warm, radial pulses palpable and symetrical. Absent : calf tenderness, cyanotic, pedal edema - Neurological Exam Neurological exam: Present: CN II-XII intact, oriented X3, no focal deficits. Absent: pronater drift, facial droop, speech deficit - Skin Skin exam: Present: dry, intact Internal Medicine: Result - Labs CBC & Chem 7: 11/12/16 03:08 11/12/16 03:08 Labs: Short CBC 11/12/16 Range/Units 03:08 WBC 5.5 (4.3-11.1) K/mcL Hgb 11.3 L (11.5-15.4) g/dL Hct 33.9 L (35.3-44.9) % Plt Count 272 (140-400) K/mcL Neutrophils # 3.1 (1.6-8.9) K/mcL BMP 11/12/16 03:08 Sodium 141 Potassium 3.6 Chloride 108 Carbon Dioxide 28 BUN 7 Creatinine 0.68 Glucose 94 Calcium 8.8 Liver Function 11/12/16 Range/Units 03:08 Total Bilirubin 0.4 (0.2-1.2) mg/dL AST 26 (5-34) Units/L ALT 25 (0-55) Units/L Alkaline Phosphatase 89 (38-126) Units/L Albumin 3.1 L (3.5-5.0) g/dL - VTE Documentation of Mechanical Device: Intermittent pneumatic compression device Consult Discharge Plan - Plan Referrals: Jarett Foreman MD [Primary Care Provider] -
[2016-11-12] MEDS ORDERED: SODIUM CHLORIDE/NAHCO3/KCL/PEG 4,000 ML SOLN.RECON PO ONE (18:28)
[2016-11-12] MEDS: rOPINIRole 1 MG TABLET PO SCH (20:10)
[2016-11-13] MEDS: Ipratropium/Albuterol Neb 3 ML IH SCH ×3 (01:02→16:34)
[2016-11-13] MEDS: *HR* OxyCODONE/APAP 10/325 TABLET PO PRN ×2 (01:59→21:06)
[2016-11-13] MEDS: Ondansetron 4 MG/2 ML VIAL IVP PRN ×2 (02:08→21:05)
[2016-11-13 04:52] LABS: Alanine Aminotransferase 44 Units/L (0-55); Albumin 3.7 g/dL (3.5-5.0); Albumin/Globulin Ratio 1.1 (1.1-2.2); Alkaline Phosphatase 105 Units/L (38-126); Aspartate Amino Transferase 40 Units/L (5-34); BUN/Creatinine Ratio 10 (6-26); Bilirubin,Total 0.6 mg/dL (0.2-1.2); Blood Urea Nitrogen 7 mg/dL (7-20); Calcium 9.3 mg/dL (8.6-10.8); Carbon Dioxide 31 mEq/L (19-29); Chloride 105 mEq/L (98-109); Globulin 3.5 g/dL (2.4-3.5); Glucose 84 mg/dL (70-99); Osmolality,Calculated 293 (280-300); Potassium 3.5 mEq/L (3.5-4.5); Sodium 143 mEq/L (136-145); Total Protein 7.2 g/dL (6.0-8.3); eGFR For African Americans > 60 (> 60); eGFR For Non-African Americans > 60 (> 60)
[2016-11-13] MEDS: OXYCODONE HCL 15 MG PO SCH (04:59)
[2016-11-13] MEDS: *HR* Morphine 2 MG/ML SYRINGE IVP PRN (05:02)
[2016-11-13 05:19] LABS: Basophils % 0.7 %; Eosinophils # 0.2 K/mcL (0.0-0.6); Eosinophils % 3.1 %; Hemoglobin 11.6 g/dL (11.5-15.4); Immature Granulocytes % 0.4 % (0-4); Immature Platelets 2.9 % (1.1-6.1); Lymphocytes # 1.4 K/mcL (0.6-4.6); Lymphocytes % 26.1 %; Mean Corpuscular HGB Conc 33.1 g/dL (31.6-35.5); Mean Corpuscular Hemoglobin 29.8 pg (28.0-33.3); Monocytes # 0.5 K/mcL (0.0-1.3); Monocytes % 8.3 %; Neutrophils # 3.3 K/mcL (1.6-8.9); Platelet Count 285 K/mcL (140-400); Red Blood Count 3.89 M/mcL (3.82-4.97); Red Cell Distribution Width 12.8 % (11.5-14.5); Segmented Neutrophils % 61.4 %
[2016-11-13] MEDS: ALPRAZolam 0.5 MG TABLET PO PRN ×2 (05:27→21:06)
[2016-11-13] MEDS: Budesonide/Formoterol 160/4.5 MDI IH SCH ×2 (07:41→20:16)
[2016-11-13] MEDS: Tiotropium 18 MCG inhalation IH SCH (07:43)
[2016-11-13] MEDS: Gabapentin 400 MG CAPSULE PO SCH ×4 (07:44→21:05)
[2016-11-13] MEDS: Loratadine 10 MG TABLET PO SCH (07:44)
[2016-11-13] MEDS: FLUoxetine 20 MG CAPSULE PO SCH (07:44)
[2016-11-13] MEDS: BuPROPion XL (24 HR) 150 MG TABLET PO SCH (07:44)
[2016-11-13] MEDS: Lisinopril 20 MG TABLET PO SCH (07:44)
[2016-11-13] MEDS: Sucralfate 1 GM TABLET PO SCH ×4 (07:44→21:06)
[2016-11-13] MEDS: Famotidine 20 MG TABLET PO SCH ×2 (07:44→21:05)
[2016-11-13] MEDS: FISH OIL PO SCH (07:45)
[2016-11-13] MEDS: Fenofibrate 54 MG TABLET PO SCH (07:45)
[2016-11-13] MEDS: GI Cocktail 40 ML EACH PO SCH (07:45)
[2016-11-13] MEDS: DHA PO SCH (07:45)
[2016-11-13] MEDS: OMEGA PO SCH (07:45)
[2016-11-13] MEDS: EPA PO SCH (07:45)
[2016-11-13] MEDS: 0.9 % Sodium Chloride 1,000 ML IVC SCH (07:49)
--- NOTE | 2016-11-13 08:43 | Gastroenterology Progress Note ---
<Clotilde Hsieh - Last Filed: 11/13/16 11:12> Date of Encounter: 11/13/16 Time of Encounter: 10:45 - Assessment and plan (1) Abdominal pain Current Visit: Yes Status: Acute Assessment and plan: Unclear etiology. Patient is being treated for findings of gastritis/ esophagitis with PPI and carafate. Currently stable, if symptoms recur consider gastroparesis. Qualifiers: Abdominal location: epigastric Qualified Code(s): R10.13 - Epigastric pain (2) Nausea and vomiting Current Visit: Yes Status: Acute Assessment and plan: Anti-emetics. Qualifiers: Vomiting type: unspecified Vomiting Intractability: non-intractable Qualified Code(s): R11.2 - Nausea with vomiting, unspecified (3) Intrahepatic bile duct dilation Current Visit: Yes Status: Resolved Assessment and plan: Stable, likely secondary to post-cholecystectomy state. No evidence of obstruction or irregularity on imaging. (4) Constipation Current Visit: Yes Status: Chronic Assessment and plan: Senna -S, 2 day prep for colonoscopy evaluation. Qualifiers: Constipation type: drug induced constipation Qualified Code(s): K59.03 - Drug induced constipation - Time Spent With Patient Total time spent is greater than 50% in coordination of care (as documented) at patient's floor/unit and/or counseling patient: less than 15 minutes - Subjective Interval history: Patient seen and examined 11/12/16 and was much improved regarding her upper abdominal pain. Still with complaint of constipation she controls at home with Correctol and stool softeners. Patient seen and examined 11/13/16. She had completed her Golytely bowel prep and was actively moving bowels, will complete Cscope prep with 1/2 miralax bowel prep today. She still complains of some upper abd discomfort. She asked if Dr. Ro would entertain placing her on long- term benzodiazepine therapy. She had an abnormal drug screen with Dr. Foreman, since that time, no other provider has filled that script, which she feels is part of the problem she is experiencing the continued abdominal pain. She is also on chronic narcotic therapy for back pain. - Constitutional Vitals: Temp Pulse Resp BP Pulse Ox 98.0 F 75 16 142/90 96 11/13/16 07:36 11/13/16 07:36 11/13/16 07:43 11/13/16 07:36 11/13/16 07:43 General appearance: Present: cooperative, A&O X 3, no acute distress, answers questions appropriately - Head Head exam: Present: atraumatic, normocephalic - Eye Eye exam: Present: normal appearance, sclera anicteric - ENT ENT exam: Present: mucous membranes moist - Neck Neck exam general surgery: Present: normal inspection, trachea midline - Respiratory Respiratory exam: Present: CTAB - Cardiovascular Cardiovascular exam: Present: RRR, +S1, +S2 - GI/Abdominal GI/Abdominal exam: Present: soft, tenderness, no peritoneal signs - Rectal Rectal exam: Present: deferred - Extremities Exam Extremities exam: Present: warm - Neurological Exam Neurological exam: Present: no focal deficits - Psychiatric Psychiatric exam: Present: anxious - Skin Skin exam: Present: dry, intact, normal color, warm Results - Labs CBC & Chem 7: 11/13/16 05:06 11/13/16 03:31 Labs: Last Result Calcium 9.3 mg/dL (8.6-10.8) 11/13/16 03:31 Troponin I 0.00 ng/mL (0-0.03) 11/10/16 21:31 Triglycerides 308 mg/dL (< 150) H 11/10/16 05:23 Entire Visit Hgb 11.6 g/dL (11.5-15.4) 11/13/16 05:06 Hct 35.0 % (35.3-44.9) L 11/13/16 05:06 Total Bilirubin 0.6 mg/dL (0.2-1.2) 11/13/16 03:31 AST 40 Units/L (5-34) H 11/13/16 03:31 ALT 44 Units/L (0-55) 11/13/16 03:31 Lipase 21 Units/L (8-78) 11/09/16 14:45 - VTE Documentation of Mechanical Device: Intermittent pneumatic compression device Consult Discharge Plan - Plan Referrals: Jarett Foreman MD [Primary Care Provider] - <Aminta Ro - Last Filed: 11/13/16 17:33> Date of Encounter: 11/13/16 Time of Encounter: 17:00 - Time Spent With Patient Total time spent is greater than 50% in coordination of care (as documented) at patient's floor/unit and/or counseling patient: - Constitutional Vitals: Temp Pulse Resp BP Pulse Ox 97.9 F 76 16 130/82 94 11/13/16 15:42 11/13/16 15:42 11/13/16 16:34 11/13/16 15:42 11/13/16 16:34 Results - Labs CBC & Chem 7: 11/13/16 05:06 11/13/16 03:31 Labs: Last Result Calcium 9.3 mg/dL (8.6-10.8) 11/13/16 03:31 Troponin I 0.00 ng/mL (0-0.03) 11/10/16 21:31 Triglycerides 308 mg/dL (< 150) H 11/10/16 05:23 Entire Visit Hgb 11.6 g/dL (11.5-15.4) 11/13/16 05:06 Hct 35.0 % (35.3-44.9) L 11/13/16 05:06 Total Bilirubin 0.6 mg/dL (0.2-1.2) 11/13/16 03:31 AST 40 Units/L (5-34) H 11/13/16 03:31 ALT 44 Units/L (0-55) 11/13/16 03:31 Lipase 21 Units/L (8-78) 11/09/16 14:45 - Attending Attestation I examined this patient and my medical decision-making was reviewed with the BALANCE BRIDGE ASSEMBLER/PA/Advanced Practice Nurse/Resident Physician. I agree with the documented findings, disposition and treatment plan as described except to the extent set forth below.
[2016-11-13] MEDS ORDERED: Polyethylene Glycol 3350 255 GM POWDER PO ONE (08:46)
[2016-11-13] MEDS ORDERED: *HR* OxyCODONE ER (12 HR) 10 MG TABLET PO SCH (09:00)
[2016-11-13] MEDS: Sennosides 8.6 MG TABLET PO SCH ×2 (09:30→21:06)
--- NOTE | 2016-11-13 09:54 | Internal Med Progress Note ---
Date of Encounter: 11/13/16 Time of Encounter: 08:30 - Assessment and plan (1) Abdominal pain Current Visit: Yes Status: Acute Assessment and plan: Patient presents to ED 11/09 with right upper quadrant and epigastric pain. EGD 11/07 showed salmon-colored mucosa suspicious for short segment Bocanegra's esophagus, a few gastric polyps, normal mucosa in the entire stomach and duodenum. Bilirubin and liver function test is within normal limits. MRI abdomen: Mild prominence of extra/intrahepatic Clay duct without any filling defect. Status post cholecystectomy. Presently on opioid analgesics intravenously. Pain is well controlled with above medication. slowly improving. tolerating diet better. Stop IV morphine. Start OxyContin ER 10 mg 3 times a day. Appreciate GI consult: given 3 gm drop in Hgb in the past month, colonoscopy tomorrow. Qualifiers: Abdominal location: epigastric Qualified Code(s): R10.13 - Epigastric pain (2) Anemia Current Visit: Yes Status: Acute Assessment and plan: Patient had a 3 gm drop of hemoglobin in the past month. Unclear etiology. negative EGD on November 07. Plan for colonoscopy tomorrow. Check ferritin, iron, B12 and folate levels. Patient is hemodynamically stable and asymptomatic. Hemoglobin is 11 today. No need for transfusion at this time. Qualifiers: Anemia type: unspecified type Qualified Code(s): D64.9 - Anemia, unspecified (3) Constipation Current Visit: Yes Status: Chronic Assessment and plan: Resolved. Qualifiers: Constipation type: drug induced constipation Qualified Code(s): K59.03 - Drug induced constipation (4) COPD (chronic obstructive pulmonary disease) Current Visit: Yes Status: Chronic Assessment and plan: Well-controlled COPD Qualifiers: COPD type: unspecified COPD Qualified Code(s): J44.9 - Chronic obstructive pulmonary disease, unspecified (5) Hypertension Current Visit: Yes Status: Chronic Assessment and plan: well-controlled blood pressure. Qualifiers: Hypertension type: essential hypertension Qualified Code(s): I10 - Essential (primary) hypertension - Subjective Interval history: patient reports improved nausea and epigastric pain. no vomiting. she drank the whole gallon of golytely for her colon prep. - Constitutional Vitals: Temp Pulse Resp BP Pulse Ox 98.0 F 75 16 142/90 96 11/13/16 07:36 11/13/16 07:36 11/13/16 07:43 11/13/16 07:36 11/13/16 07:43 General appearance: Present: cooperative, A&O X 3, pleasant, severe distress, loss of weight, answers questions appropriately - Neck Neck exam general surgery: Present: supple, trachea midline. Absent: lymphadenopathy - Respiratory Respiratory exam: Present: CTAB - Cardiovascular Cardiovascular exam: Present: RRR - GI/Abdominal GI/Abdominal exam: Present: normal bowel sounds, soft. Absent: distended, tenderness - Extremities Exam Extremities exam: Absent: pedal edema - Neurological Exam Neurological exam: Present: alert, oriented X3, no focal deficits, strengths equal and symetr throughout. Absent: facial droop, speech deficit - Skin Skin exam: Absent: rash Internal Medicine: Result - Labs CBC & Chem 7: 11/13/16 05:06 11/13/16 03:31 Labs: Short CBC 11/13/16 Range/Units 05:06 WBC 5.4 (4.3-11.1) K/mcL Hgb 11.6 (11.5-15.4) g/dL Hct 35.0 L (35.3-44.9) % Plt Count 285 (140-400) K/mcL Neutrophils # 3.3 (1.6-8.9) K/mcL BMP 11/13/16 03:31 Sodium 143 Potassium 3.5 Chloride 105 Carbon Dioxide 31 H BUN 7 Creatinine 0.71 Glucose 84 Calcium 9.3 Liver Function 11/13/16 Range/Units 03:31 Total Bilirubin 0.6 (0.2-1.2) mg/dL AST 40 H (5-34) Units/L ALT 44 (0-55) Units/L Alkaline Phosphatase 105 (38-126) Units/L Albumin 3.7 (3.5-5.0) g/dL - VTE Documentation of Mechanical Device: Intermittent pneumatic compression device Consult Discharge Plan - Plan Referrals: Jarett Foreman MD [Primary Care Provider] -
[2016-11-13] MEDS: *HR* OxyCODONE ER (12 HR) 10 MG TABLET PO SCH ×2 (10:48→18:16)
[2016-11-13] MEDS: rOPINIRole 1 MG TABLET PO SCH (21:06)
[2016-11-14] MEDS: Ipratropium/Albuterol Neb 3 ML IH SCH ×3 (02:40→16:02)
[2016-11-14] MEDS: *HR* OxyCODONE ER (12 HR) 10 MG TABLET PO SCH ×2 (03:47→10:28)
[2016-11-14] MEDS: *HR* OxyCODONE/APAP 10/325 TABLET PO PRN ×2 (03:50→12:23)
[2016-11-14 06:32] LABS: Basophils # 0.1 K/mcL (0.0-0.2); Basophils % 1.1 %; Eosinophils # 0.2 K/mcL (0.0-0.6); Eosinophils % 4.4 %; Hematocrit 33.3 % (35.3-44.9); Hemoglobin 10.8 g/dL (11.5-15.4); Immature Granulocytes % 0.4 % (0-4); Lymphocytes # 1.8 K/mcL (0.6-4.6); Lymphocytes % 33.7 %; Mean Corpuscular HGB Conc 32.4 g/dL (31.6-35.5); Mean Corpuscular Hemoglobin 29.5 pg (28.0-33.3); Mean Platelet Volume 9.5 fL (9.4-12.4); Monocytes # 0.4 K/mcL (0.0-1.3); Monocytes % 7.8 %; Neutrophils # 2.8 K/mcL (1.6-8.9); Platelet Count 262 K/mcL (140-400); Red Blood Count 3.66 M/mcL (3.82-4.97); Red Cell Distribution Width 13.1 % (11.5-14.5); Segmented Neutrophils % 52.6 %
[2016-11-14 06:49] LABS: BUN/Creatinine Ratio 10 (6-26); Blood Urea Nitrogen 6 mg/dL (7-20); Calcium 8.6 mg/dL (8.6-10.8); Carbon Dioxide 26 mEq/L (19-29); Chloride 109 mEq/L (98-109); Glucose 82 mg/dL (70-99); Magnesium 1.7 mg/dL (1.6-2.6); Osmolality,Calculated 291 (280-300); Potassium 3.5 mEq/L (3.5-4.5); Sodium 142 mEq/L (136-145); eGFR For African Americans > 60 (> 60); eGFR For Non-African Americans > 60 (> 60)
[2016-11-14] MEDS: FLUoxetine 20 MG CAPSULE PO SCH (08:20)
[2016-11-14] MEDS: Gabapentin 400 MG CAPSULE PO SCH ×3 (08:20→16:14)
[2016-11-14] MEDS: Sennosides 8.6 MG TABLET PO SCH (08:20)
[2016-11-14] MEDS: Lisinopril 20 MG TABLET PO SCH (08:21)
[2016-11-14] MEDS: Tiotropium 18 MCG inhalation IH SCH (08:21)
[2016-11-14] MEDS: Famotidine 20 MG TABLET PO SCH (08:23)
[2016-11-14] MEDS: Loratadine 10 MG TABLET PO SCH (08:23)
[2016-11-14] MEDS: Sucralfate 1 GM TABLET PO SCH ×3 (08:23→16:13)
[2016-11-14] MEDS: BuPROPion XL (24 HR) 150 MG TABLET PO SCH (08:24)
[2016-11-14] MEDS: Fenofibrate 54 MG TABLET PO SCH (08:24)
[2016-11-14] MEDS: Budesonide/Formoterol 160/4.5 MDI IH SCH (08:26)
[2016-11-14] MEDS: Ondansetron 4 MG/2 ML VIAL IVP PRN (08:31)
[2016-11-14 10:19] LABS: % Iron Saturation 22 % (15-50); Iron 63 mcg/dL (50-170); Transferrin 208 mg/dL (180-382)
[2016-11-14 10:44] LABS: Ferritin 34 ng/ml (5-204)
[2016-11-14 10:54] LABS: Folate 9.2 ng/mL (7.0-31.4)
--- NOTE | 2016-11-14 13:14 | Anesthesia Evaluation PreOp ---
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 Significant HX Other Medical History: GERD, Other (anxiety/depression, fibromyalgia) Anesthesia History: No Prior Anesthetic Complications, Past Anesthesia ( hysterectomy) Alcohol Use: none Drug use: none Medications and Allergies Sucralfate [Carafate] 1 gm PO QIDAC #56 tablet 10/22/16 [Rx] Albuterol Sulfate [Proair Hfa] 2 puff IH Q4H PRN 11/09/16 [History] Amitriptyline [Elavil] 25 mg PO HS 11/09/16 [History] Black Cohosh 540 mg PO HS 11/09/16 [History] BuPROPion XL (24 HR) [Wellbutrin XL] 150 mg PO DAILY 11/09/16 [History] Budesonide/Formoterol 160/4.5 [Symbicort 160/4.5] 2 puff IH BIDR 11/09/16 [ History] Cetirizine HCl [Zyrtec] 10 mg PO DAILY 11/09/16 [History] Dicyclomine [Bentyl] 20 mg PO QID 11/09/16 [History] FLUoxetine HCl [Prozac] 40 mg PO DAILY 11/09/16 [History] Fenofibrate Nanocrystallized [Tricor] 145 mg PO DAILY 11/09/16 [History] Fluticasone Propionate Nasal [Flonase] 1 spray NS BID PRN 11/09/16 [History] Furosemide [Lasix] 20 mg PO DAILY 11/09/16 [History] GI Cocktail [Gi Cocktail] 10 ml PO BID 11/09/16 [History] Gabapentin [Neurontin] 800 mg PO QID 11/09/16 [History] Ipratropium/Albuterol Neb [Duoneb] 3 ml IH TID 11/09/16 [History] Lactulose 15 ml PO DAILY PRN 11/09/16 [History] Lisinopril [Zestril] 20 mg PO DAILY 11/09/16 [History] Meclizine HCl [Verticalm] 25 mg PO Q4-6H PRN 11/09/16 [History] [place]-3/Dha/Epa/Fish Oil [Fish Oil 500 mg Softgel] 500 mg PO BID 11/09/16 [ History] Ondansetron HCl [Zofran] 4 mg PO TID PRN 11/09/16 [History] Oxycodone HCl [Oxycodone HCl ER] 15 mg PO Q12H 11/09/16 [History] Oxycodone HCl/Acetaminophen [Percocet 10-325 mg Tablet] 1 each PO Q6H PRN [History] Pantoprazole Sodium [Pantoprazole Sodium] 40 mg PO BID 11/09/16 [History] Promethazine [Phenergan] 25 mg PO TID PRN 11/09/16 [History] Ranitidine HCl [Zantac] 150 mg PO BID 11/09/16 [History] Ropinirole [Requip] 1 mg PO HS 11/09/16 [History] Tiotropium [Spiriva] 18 mcg IH 0700 11/09/16 [History] Allergies Banana Adverse Reaction (Mild, Verified 11/09/16 18:06) See Comments Patient states she had allergy testing done and was allergic. cefdinir [From Omnicef] Adverse Reaction (Mild, Verified 11/09/16 18:06) Rash egg Adverse Reaction (Mild, Verified 11/09/16 18:08) See Comments Patient states she had allergy testing done and was told that she was allergic. - Meds/Allergy Pre-op Review Medications Reviewed: Yes Allergies Reviewed: Yes Beta Blockers on Current Med List: No Anesthesia Results - Labs 11/14/16 05:19 11/14/16 05:19 - Imaging EKG: report reviewed (11/09/2016 SR) Anesthesia Exam Vital Signs/O2 Sat, Most Current Temp Pulse Resp BP Pulse Ox 98.1 F 67 18 143/87 97 11/14/16 10:20 11/14/16 10:20 11/14/16 10:20 11/14/16 10:20 11/14/16 10:20 Height: 5'1''/1.55 m Weight: 147 lbs/67 kg NPO (# of Hours): 8 Pain Scale: 0 Pain Scale Used: Numeric (1 - 10) - HEENT Pupil (Motor): EOMI Mallampati: III Teeth: Normal Oral Opening: Greater than 3 - [employer]ANNING [employer] ATTENDANT LOC: Oriented [employer] ATTENDANT Motor: Normal RUE, Normal LUE, Normal RLE, Normal Face, Deficit LLE [employer]ING [employer] ATTENDANT Sensory: Normal: RUE, LUE, RLE, Face, Deficit: LLE - Cardiac Rhythm: Regular Murmur: None - Pulmonary Breath Sounds: bilateral Clear Respiratory Effort: Symmetrical Anesthesia Assess/Plan ASA Score: 2 Modified [place] Scale for Level of Consciousness: Cooperative, oriented, and tranquil Anesthetic Plan: MAC Monitoring Plan: Standard Monitors
[2016-11-14] MEDS ORDERED: 0.9 % Sodium Chloride 1,000 ML IVC SCH (14:00)
--- NOTE | 2016-11-14 14:44 | Anesthesia Evaluation Post Op ---
Date of Encounter: 11/14/16 Time of Encounter: 14:42 - Vital Signs Vital Signs: 3 Vital Signs Time 1442 BP 105/60 Pulse 63 Resp 20 O2 Sat 97 - Lungs Lungs: Clear Ascult./Percussion - Airway Airway: Non-obstructed - Cardiovascular Regular Rate - Mental Status Mental Status: Alert & Oriented, Answers Appropriately - Pain Pain Scale: 7 Pain Scale used: Numeric (1 - 10) - Nausea Vomiting Nausea Vomiting: Not Present - Hydration Hydration: NPO - Discharge PostOp Status: Transfer Patient to floor
[2016-11-14 16:08] VITALS: BP 132/81
[2016-11-14] MEDS: ALPRAZolam 0.5 MG TABLET PO PRN (16:14)
--- NOTE | 2016-11-14 16:54 | Discharge Summary ---
Date of Encounter: 11/15/16 Time of Encounter: 16:50 - Discharge Diagnosis (1) Abdominal pain Priority: Primary Status: Acute Qualifiers: Abdominal location: epigastric Qualified Code(s): R10.13 - Epigastric pain (2) Anemia Priority: Primary Status: Acute Qualifiers: Anemia type: iron deficiency Iron deficiency anemia type: chronic blood loss Qualified Code(s): D50.0 - Iron deficiency anemia secondary to blood loss (chronic) (3) Constipation Priority: Secondary Status: Chronic Qualifiers: Constipation type: drug induced constipation Qualified Code(s): K59.03 - Drug induced constipation (4) COPD (chronic obstructive pulmonary disease) Priority: Secondary Status: Chronic Qualifiers: COPD type: unspecified COPD Qualified Code(s): J44.9 - Chronic obstructive pulmonary disease, unspecified (5) Hypertension Priority: Secondary Status: Chronic Qualifiers: Hypertension type: essential hypertension Qualified Code(s): I10 - Essential (primary) hypertension - Discharge Medications Prescriptions: Docusate [Colace] 100 mg PO BID PRN #60 capsule PRN Reason: Constipation Ferrous Gluconate 324 mg PO DAILY #30 tablet Home Medications: Sucralfate [Carafate] 1 gm PO QIDAC #56 tablet 10/22/16 [Rx] Albuterol Sulfate [Proair Hfa] 2 puff IH Q4H PRN 11/09/16 [History] Amitriptyline [Elavil] 25 mg PO HS 11/09/16 [History] BuPROPion XL (24 HR) [Wellbutrin Xl] 150 mg PO DAILY 11/09/16 [History] Budesonide/Formoterol 160/4.5 [Symbicort 160/4.5] 2 puff IH BIDR 11/09/16 [ History] Cetirizine HCl [Zyrtec] 10 mg PO DAILY 11/09/16 [History] Dicyclomine [Bentyl] 20 mg PO QID 11/09/16 [History] FLUoxetine HCl [Prozac] 40 mg PO DAILY 11/09/16 [History] Fenofibrate Nanocrystallized [Tricor] 145 mg PO DAILY 11/09/16 [History] Fluticasone Propionate Nasal [Flonase] 1 spray NS BID PRN 11/09/16 [History] Furosemide [Lasix] 20 mg PO DAILY 11/09/16 [History] Gabapentin [Neurontin] 800 mg PO QID 11/09/16 [History] Lactulose 15 ml PO DAILY PRN 11/09/16 [History] Lisinopril [Zestril] 20 mg PO DAILY 11/09/16 [History] Meclizine HCl [Verticalm] 25 mg PO Q4-6H PRN 11/09/16 [History] [place]-3/Dha/Epa/Fish Oil [Fish Oil 500 mg Softgel] 500 mg PO BID 11/09/16 [ History] Ondansetron HCl [Zofran] 4 mg PO TID PRN 11/09/16 [History] Oxycodone HCl [Oxycodone HCl ER] 15 mg PO Q12H 11/09/16 [History] Oxycodone HCl/Acetaminophen [Percocet 10-325 mg Tablet] 1 each PO Q6H PRN [History] Pantoprazole Sodium 40 mg PO BID 11/09/16 [History] Promethazine [Phenergan] 25 mg PO TID PRN 11/09/16 [History] Ranitidine HCl [Zantac] 150 mg PO BID 11/09/16 [History] Tiotropium [Spiriva] 18 mcg IH 0700 11/09/16 [History] rOPINIRole [Requip] 1 mg PO HS 11/09/16 [History] Docusate [Colace] 100 mg PO BID PRN #60 capsule 11/14/16 [Rx] Ferrous Gluconate 324 mg PO DAILY #30 tablet 11/14/16 [Rx] GI Cocktail [Gi Cocktail] 10 ml PO BID PRN #0 11/14/16 [Rx] Allergies/Adverse Reactions: Allergies Banana Adverse Reaction (Mild, Verified 11/09/16 18:06) See Comments Patient states she had allergy testing done and was allergic. cefdinir [From Omnicef] Adverse Reaction (Mild, Verified 11/09/16 18:06) Rash egg Adverse Reaction (Mild, Verified 11/09/16 18:08) See Comments Patient states she had allergy testing done and was told that she was allergic. Date of admission: 11/09/16 17:35 Primary care physician: Jarett Foreman MD Consults: 11/13/16 12:50 Consult to Resort Manager [CONS] Routine Reason for SW Consult: you asked for this consult - Patient Status Disposition: Home, Self-Care Condition: Good Functional capacity at discharge: independent ambulation Overall status at discharge: patient is progressing back to baseline - Discharge Instructions Follow Up With: Jarett Foreman MD [Primary Care Provider] - Additional Instructions: PLEASE CHECK YOUR BLOOD PRESSURE TWICE DAILY (SAME TIME IN THE MORNING AND EVENING). WRITE DOWN THE NUMBERS AND BRING RECORD TO DOCTOR'S APPOINTMENT. FOLLOW UP WITH YOUR DOCTOR IN 1 WEEK. MAKE SURE TO HAVE THE BLOOD TEST BEFORE YOUR APPOINTMENT - Diet and Activity Activity: resume usual activities as tolerated Diet: low salt diet (diverticular diet) Interval History: patient had colonoscopy this afternoon. she is eating well and reports no bleeding. she is eager to go home. Hospital course: Ms. Portillo is a 61 year old female with a past medical history of GERD, hypertension, COPD, anxiety, depression, and fibromyalgia who presented with a chief complaint of abdominal pain associated with nausea and vomiting for at least 3 weeks prior to admission. Bilirubin and liver function test is within normal limits. MRI abdomen: Mild prominence of extra/intrahepatic Clay duct without any filling defect. Status post cholecystectomy. patient was noted to have a 3 g drop off her hemoglobin for the past month. Ferritin was 34. Patient remained hemodynamically stable and hgb remained at 11. 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 Colonoscopy showed diverticulosis in the sigmoid colon and internal hemorrhoids. Patient instructed to eat more fiber and follow a diverticular diet. PLAN: check CBC in 1 week. follow up with pcp in 1 week for iron deficiency anemia. - Time Spent with Patient Total time spent providing and/or coordinating discharge services: - Constitutional Vitals: Temp Pulse Resp BP Pulse Ox 98.0 F 64 18 132/81 96 11/14/16 16:07 11/14/16 16:07 11/14/16 16:09 11/14/16 16:11/14/16 16:09 General appearance: Present: cooperative, A&O X 3, pleasant, severe distress, loss of weight, answers questions appropriately - Neck Neck exam general surgery: Present: supple, trachea midline. Absent: lymphadenopathy - Respiratory Respiratory exam: Present: CTAB - Cardiovascular Cardiovascular exam: Present: RRR - GI/Abdominal GI/Abdominal exam: Present: normal bowel sounds, soft. Absent: distended, tenderness - Extremities Exam Extremities exam: Absent: pedal edema - Back Exam Back exam: Absent: CVA tenderness (L), CVA tenderness (R) - Neurological Exam Neurological exam: Present: alert, oriented X3, no focal deficits, strengths equal and symetr throughout. Absent: facial droop, speech deficit - Skin Skin exam: Absent: rash - VTE Documentation of Mechanical Device: Intermittent pneumatic compression device
[2016-11-14] MEDS ORDERED: *HR* Propofol 200 MG/20 ML VIAL IVP ONE (18:09)
[2016-11-14] MEDS ORDERED: Lidocaine -MPF 2% 5 ML VIAL INFILT ONE (18:09)
== END 2016-11-14 18:10 | disposition home or self-care (01) | DRG 392 ==
LOC: EMEROO 13:36 → 3BNU 13:36 → SUATTDRO 17:35 → 3ANU 11-14 01:25
PROVIDERS: ADMIT Nurse Practitioner Family; ATTEND Internal Medicine